=== PATIENT | female | born 1980 | race American Indian/Alaskan Native ===

== ENCOUNTER 2021-09-28 22:54 | Inpatient (IN) | payer MEDICAID ==
[2021-09-28] MEDS ORDERED: THIAMINE 100 MG, FOLIC ACID 1 MG, MULTIPLE VITAMIN INJ, ADULT 10 ML in SODIUM CHLORIDE ... IV ONE (23:08)
[2021-09-28] MEDS ORDERED: NALOXONE 0.4 MG/1 ML INJ IV ONE (23:08)
[2021-09-28] MEDS ORDERED: LORazepam 2 MG/ML VIAL IM PRN (23:09)
[2021-09-28] MEDS ORDERED: HALOPERIDOL LACTATE 5 MG/1 ML INJ IM PRN (23:09)
[2021-09-28] MEDS ORDERED: NALOXONE 2 MG/2 ML INJ IV PRN (23:10)
[2021-09-28] MEDS ORDERED: NALOXONE 2 MG/2 ML INJ IV ONE ×2 (23:10→23:11)
[2021-09-28] MEDS ORDERED: NALOXONE 0.4 MG/1 ML INJ IM ONE (23:11)
--- NOTE | 2021-09-28 23:12 | Emergency Department Report ---
<TY DUPONT - Last Filed: 09/29/21 03:31> ED General Adult HPI - General Chief complaint: Overdose Stated complaint: DRUG OD Time Seen by Provider: 09/28/21 23:08 - Related Data Home Medications Medication Instructions Recorded Confirmed Last Taken Gabapentin 400 mg PO BID 09/29/21 09/29/21 09/27/21 Allergies Allergy/AdvReac Type Severity Reaction Status Date / Time iodine Allergy Anaphylaxis Verified 09/29/21 09:36 ED Past Medical Hx - Medications Home Medications: Home Medications Medication Instructions Recorded Confirmed Last Taken Type Gabapentin 400 mg PO BID 09/29/21 09/29/21 09/27/21 History ED Medical Decision Making - Lab Data Result diagrams: 09/28/21 23:19 09/28/21 23:19 - Medical Decision Making The patient CT of the head, CT of the neck, and chest x-ray were interpreted by the radiologist and were also reviewed by me. The patient saturations were noted to be low on presentation to the emergency department she was immediately bagged and given a total of 8 mg of Narcan with some response. The decision to intubate the patient was aborted. She has since shown some improvement and is on oxygen at 3 L nasal cannula with a heart rate of 65 respiratory 28 saturation of 99 and blood pressure 133/93. The patient's drug screen was positive for benzodiazepine but did not show any alcohol or opiates. I spoke to the hospitalist who agreed to go ahead and admit the patient to a stepdown unit. It is of note that this patient lost a brother to overdose of drugs as well. ED Disposition Clinical Impression: Closed head injury Overdose Qualifiers: Encounter type: initial encounter Injury intent: undetermined intent Qualified Code(s): T50.904A - Poisoning by unspecified drugs, medicaments and biological substances, undetermined, initial encounter Disposition: ADMITTED INPATIENT Condition: Serious <MONASHANNON - Last Filed: 10/01/21 14:19> ED General Adult HPI - General Source: family, RN notes reviewed Mode of arrival: Stretcher Limitations: Altered Mental Status, Physical Limitation - History of Present Illness Initial comments: The patient is a 41-year-old female. She presents acutely unresponsive. History obtained from nursing team who in turn received report from family. Apparently, patient was found in the bathroom unresponsive and barely breathing. Reportedly, family drove patient here approximately 1/2-hour. Upon arrival to the emergency room, the patient is in a car, not breathing, and not moving. She is immediately brought back to the resuscitation bay. She receives aao-jfxvc-axun ventilation. She is immediately placed on a workforce management manager. She received Narcan 2 mg IV x3, and 2 mg IM x1, for a total cumulative dose of 8 mg. She has marked improvement in her respiratory distress. She is awake and confused. She does not know where she is. She is moving 4 extremities. She denies homicidality and suicidality. -: This evening ED Review of Systems ROS: Stated complaint: DRUG OD Other details as noted in HPI Comment: Unobtainable due to pts medical conditions ED Physical Exam - General Limitations: Altered Mental Status General appearance: appears intoxicated, lethargic - Head Head exam: Present: atraumatic, normocephalic - Eye Eye exam: Present: normal appearance, EOMI. Absent: nystagmus - ENT ENT exam: Present: normal orophraynx, mucous membranes moist, normal external ear exam, other (Blood is noted in the anterior aspect of the). Absent: normal exam - Neck Neck exam: Present: normal inspection, full ROM. Absent: tenderness, meningismus - Respiratory Respiratory exam: Present: respiratory distress, rhonchi. Absent: wheezes, rales - Cardiovascular Cardiovascular Exam: Present: regular rate, normal rhythm, normal heart sounds. Absent: bradycardia, tachycardia, irregular rhythm, systolic murmur, diastolic murmur, rubs, gallop - GI/Abdominal GI/Abdominal exam: Present: soft. Absent: distended, tenderness, guarding, rebound, rigid, pulsatile mass - Extremities Exam Extremities exam: Present: normal inspection, full ROM, other (2+ pulses noted in the bilateral upper and lower extremities. There is no palpable cord. negative Homans sign. Muscular compartments are soft. The pelvis is stable.). Absent: pedal edema, calf tenderness - Back Exam Back exam: Present: normal inspection. Absent: tenderness, CVA tenderness (R), CVA tenderness (L), muscle spasm, paraspinal tenderness, vertebral tenderness - Neurological Exam Neurological exam: Present: altered, other (After administration of Narcan, the patient is awake, confused, and moving 4 extremities) - Psychiatric Psychiatric exam: Present: agitated, anxious - Skin Skin exam: Present: warm, dry, intact, normal color. Absent: rash ED Course Vital Signs 09/28/21 09/28/21 09/28/21 22:54 23:35 23:45 Temperature Pulse Rate 83 88 Respiratory 25 H 22 Rate Blood Pressure 123/62 Blood Pressure 115/80 [Right] O2 Sat by Pulse 100 100 100 Oximetry 09/28/21 09/28/21 09/29/21 23:51 23:53 00:01 Temperature Pulse Rate 97 H 94 H Respiratory 16 29 H Rate Blood Pressure 123/62 123/69 Blood Pressure [Right] O2 Sat by Pulse 100 98 100 Oximetry 09/29/21 09/29/21 09/29/21 00:35 00:45 01:01 Temperature Pulse Rate 84 81 89 Respiratory 15 27 H 16 Rate Blood Pressure 123/69 123/69 113/71 Blood Pressure [Right] O2 Sat by Pulse 100 99 100 Oximetry 09/29/21 09/29/21 09/29/21 01:15 01:31 01:45 Temperature Pulse Rate 82 91 H 67 Respiratory 32 H 14 31 H Rate Blood Pressure 113/71 117/72 117/72 Blood Pressure [Right] O2 Sat by Pulse 100 100 98 Oximetry 09/29/21 09/29/21 09/29/21 02:01 02:15 02:31 Temperature Pulse Rate 67 67 65 Respiratory 33 H 29 H 25 H Rate Blood Pressure 107/70 107/70 133/93 Blood Pressure [Right] O2 Sat by Pulse 99 99 99 Oximetry 09/29/21 09/29/21 09/29/21 02:45 03:01 03:15 Temperature Pulse Rate 65 68 70 Respiratory 30 H 29 H 25 H Rate Blood Pressure 133/93 115/64 115/64 Blood Pressure [Right] O2 Sat by Pulse 98 98 98 Oximetry 09/29/21 09/29/21 09/29/21 03:21 03:31 03:45 Temperature 97 F L Pulse Rate 67 65 Respiratory 24 27 H Rate Blood Pressure 112/75 112/75 Blood Pressure [Right] O2 Sat by Pulse 99 98 Oximetry 09/29/21 09/29/21 09/29/21 04:01 04:36 04:45 Temperature Pulse Rate 73 69 74 Respiratory 19 19 16 Rate Blood Pressure 136/94 Blood Pressure [Right] O2 Sat by Pulse 99 100 100 Oximetry - Reevaluation(s) Reevaluation #1: 09/28/21 23:54 Differential diagnosis, including but not limited to: Toxic metabolic encephalopathy, opioid overdose, closed head injury, cervical spine injury Assessment and plan: 41-year-old female with probable toxic metabolic encephal opathy, likely secondary to opioid, reversed with cumulative dose of 8 mg of Narcan. Patient is awake, breathing spontaneously, protecting her airway, and moving [address] scan of the brain and cervical spine ordered. EKG pending. Care will be transferred to the oncoming ER physician to follow-up on these diagnostic studies. Recommend admission to the medical service for respiratory care and observation. Patient placed on hold, and have requested psychiatric consultation and evaluation Patient is not cleared for psychiatric placement and disposition at this time, b ut we appreciates the psychiatric team's recommendations regarding this patient's care for overdose of uncertain intent ED Medical Decision Making - Lab Data Result diagrams: 09/28/21 23:19 09/28/21 23:19 Vital Signs 09/28/21 09/28/21 09/28/21 22:54 23:35 23:45 Pulse Rate 83 88 Respiratory 25 H 22 Rate Blood Pressure 123/62 Blood Pressure 115/80 [Right] O2 Sat by Pulse 100 100 100 Oximetry Lab Results 09/28/21 09/28/21 09/28/21 Range/Units 23:19 23:19 23:19 WBC 4.6 (4.5-11.0) K/mm3 RBC 3.89 (3.65-5.03) M/mm3 Hgb 11.8 (10.1-14.3) gm/dl Hct 36.0 (30.3-42.9) % MCV 93 (79-97) fl MCH 30 (28-32) pg MCHC 33 (30-34) % RDW 13.7 (13.2-15.2) % Plt Count 67 L (140-440) K/mm3 Lymph % (Auto) 45.3 H (13.4-35.0) % [place] % (Auto) 3.8 (0.0-7.3) % Eos % (Auto) 2.3 (0.0-4.3) % Baso % (Auto) 0.8 (0.0-1.8) % Lymph # (Auto) 2.1 (1.2-5.4) K/mm3 [place] # (Auto) 0.2 (0.0-0.8) K/mm3 Eos # (Auto) 0.1 (0.0-0.4) K/mm3 Baso # (Auto) 0.0 (0.0-0.1) K/mm3 Seg Neutrophils % 47.8 (40.0-70.0) % Seg Neutrophils # 2.2 (1.8-7.7) K/mm3 PT 12.9 (12.2-14.9) Sec. INR 0.88 (0.87-1.13) APTT 21.3 L (24.2-36.6) Sec. Sodium 137 (137-145) mmol/L Potassium 4.0 (3.6-5.0) mmol/L Chloride 100.6 (98-107) mmol/L Carbon Dioxide 24 (22-30) mmol/L Anion Gap 16 mmol/L BUN 8 (7-17) mg/dL Creatinine 0.9 (0.6-1.2) mg/dL Estimated GFR > 60 ml/min BUN/Creatinine Ratio 9 % Glucose 260 H (65-100) mg/dL Calcium 9.1 (8.4-10.2) mg/dL Magnesium 2.00 (1.7-2.3) mg/dL Total Bilirubin 0.80 (0.1-1.2) mg/dL AST 97 H (5-40) units/L ALT 60 H (7-56) units/L Alkaline Phosphatase 112 (35-129) units/L Total Creatine Kinase (30-135) units/L Total Protein 7.4 (6.3-8.2) g/dL Albumin 4.3 (3.9-5) g/dL Albumin/Globulin Ratio 1.4 % Salicylates (2.8-20.0) mg/dL Acetaminophen (10.0-30.0) ug/mL Plasma/Serum Alcohol (0-0.07) % 09/28/21 09/28/21 09/28/21 Range/Units 23:19 23:19 23:19 WBC (4.5-11.0) K/mm3 RBC (3.65-5.03) M/mm3 Hgb (10.1-14.3) gm/dl Hct (30.3-42.9) % MCV (79-97) fl MCH (28-32) pg MCHC (30-34) % RDW (13.2-15.2) % Plt Count (140-440) K/mm3 Lymph % (Auto) (13.4-35.0) % [place] % (Auto) (0.0-7.3) % Eos % (Auto) (0.0-4.3) % Baso % (Auto) (0.0-1.8) % Lymph # (Auto) (1.2-5.4) K/mm3 [place] # (Auto) (0.0-0.8) K/mm3 Eos # (Auto) (0.0-0.4) K/mm3 Baso # (Auto) (0.0-0.1) K/mm3 Seg Neutrophils % (40.0-70.0) % Seg Neutrophils # (1.8-7.7) K/mm3 PT (12.2-14.9) Sec. INR (0.87-1.13) APTT (24.2-36.6) Sec. Sodium (137-145) mmol/L Potassium (3.6-5.0) mmol/L Chloride (98-107) mmol/L Carbon Dioxide (22-30) mmol/L Anion Gap mmol/L BUN (7-17) mg/dL Creatinine (0.6-1.2) mg/dL Estimated GFR ml/min BUN/Creatinine Ratio % Glucose (65-100) mg/dL Calcium (8.4-10.2) mg/dL Magnesium (1.7-2.3) mg/dL Total Bilirubin (0.1-1.2) mg/dL AST (5-40) units/L ALT (7-56) units/L Alkaline Phosphatase (35-129) units/L Total Creatine Kinase 168 H (30-135) units/L Total Protein (6.3-8.2) g/dL Albumin (3.9-5) g/dL Albumin/Globulin Ratio % Salicylates < 0.3 L (2.8-20.0) mg/dL Acetaminophen (10.0-30.0) ug/mL Plasma/Serum Alcohol < 0.01 (0-0.07) % 09/28/21 Range/Units 23:19 WBC (4.5-11.0) K/mm3 RBC (3.65-5.03) M/mm3 Hgb (10.1-14.3) gm/dl Hct (30.3-42.9) % MCV (79-97) fl MCH (28-32) pg MCHC (30-34) % RDW (13.2-15.2) % Plt Count (140-440) K/mm3 Lymph % (Auto) (13.4-35.0) % [place] % (Auto) (0.0-7.3) % Eos % (Auto) (0.0-4.3) % Baso % (Auto) (0.0-1.8) % Lymph # (Auto) (1.2-5.4) K/mm3 [place] # (Auto) (0.0-0.8) K/mm3 Eos # (Auto) (0.0-0.4) K/mm3 Baso # (Auto) (0.0-0.1) K/mm3 Seg Neutrophils % (40.0-70.0) % Seg Neutrophils # (1.8-7.7) K/mm3 PT (12.2-14.9) Sec. INR (0.87-1.13) APTT (24.2-36.6) Sec. Sodium (137-145) mmol/L Potassium (3.6-5.0) mmol/L Chloride (98-107) mmol/L Carbon Dioxide (22-30) mmol/L Anion Gap mmol/L BUN (7-17) mg/dL Creatinine (0.6-1.2) mg/dL Estimated GFR ml/min BUN/Creatinine Ratio % Glucose (65-100) mg/dL Calcium (8.4-10.2) mg/dL Magnesium (1.7-2.3) mg/dL Total Bilirubin (0.1-1.2) mg/dL AST (5-40) units/L ALT (7-56) units/L Alkaline Phosphatase (35-129) units/L Total Creatine Kinase (30-135) units/L Total Protein (6.3-8.2) g/dL Albumin (3.9-5) g/dL Albumin/Globulin Ratio % Salicylates (2.8-20.0) mg/dL Acetaminophen 5.0 L (10.0-30.0) ug/mL Plasma/Serum Alcohol (0-0.07) % - Radiology Data Radiology results: image reviewed interpreted by me: 1 view x-ray of the chest, interpreted by myself, shows clear lungs, no infiltrate and no pneumothorax Critical Care Time: Yes Critical care time in (mins) excluding proc time.: 45 Critical care attestation.: If time is entered above; I have spent that time in minutes in the direct care of this critically ill patient, excluding procedure time. ED Disposition Is pt being admited?: Yes Does the pt Need Aspirin: No
[2021-09-28 23:43] LABS: Basophils % (Auto) 0.8 % (0.0-1.8); Eosinophils # (Auto) 0.1 K/mm3 (0.0-0.4); Eosinophils % (Auto) 2.3 % (0.0-4.3); Hemoglobin 11.8 gm/dl (10.1-14.3); Lymphocytes # (Auto) 2.1 K/mm3 (1.2-5.4); Lymphocytes % (Auto) 45.3 % (13.4-35.0); Mean Corpuscular HGB Conc 33 % (30-34); Mean Corpuscular Volume 93 fl (79-97); Monocytes # (Auto) 0.2 K/mm3 (0.0-0.8); Monocytes % (Auto) 3.8 % (0.0-7.3); Red Blood Count 3.89 M/mm3 (3.65-5.03); Red Cell Distribution Width 13.7 % (13.2-15.2)
[2021-09-28 23:48] LABS: Platelet Count 67 K/mm3 (140-440)
[2021-09-28 23:50] LABS: Alanine Aminotransferase 60 units/L (7-56); Albumin 4.3 g/dL (3.9-5); BUN/Creatinine Ratio 9; Blood Urea Nitrogen 8 mg/dL (7-17); Calcium 9.1 mg/dL (8.4-10.2); Hemolysis Index 7; INR 0.88 (0.87-1.13)
[2021-09-28 23:51] LABS: Partial Thromboplastin Time 21.3 Sec. (24.2-36.6)
--- NOTE | 2021-09-28 23:57 | XRay Report ---
CHEST 1 VIEW INDICATION / CLINICAL INFORMATION: Overdose, hypoxia, respiratory distress. COMPARISON: None available. FINDINGS: SUPPORT DEVICES: None. HEART / MEDIASTINUM: No significant abnormality. LUNGS / PLEURA: The lungs are clear. No pneumothorax. BONES: No significant osseous abnormality. ADDITIONAL FINDINGS: No significant additional findings. IMPRESSION: 1. No active cardiopulmonary disease. Signer Name: Brock Valdez II, MD Signed: 09/28/2021 11:53 PM Workstation Name: [id number]
--- NOTE | 2021-09-29 00:52 | Cat Scan Report ---
CT HEAD WITHOUT CONTRAST INDICATION / CLINICAL INFORMATION: Alcohol intoxication with closed head injury. TECHNIQUE: CT head was performed without administration of intravenous contrast. All CT scans at this location are performed using CT dose reduction for ALARA by means of automated exposure control. COMPARISON: None available. FINDINGS: CEREBRAL PARENCHYMA: No significant abnormality. No acute territorial infarct. HEMORRHAGE: None. EXTRA-AXIAL SPACES: Normal in size and morphology for the patient's age. VENTRICULAR SYSTEM: Normal in size and morphology for the patient's age. MIDLINE SHIFT / HERNIATION: None. CEREBELLUM / BRAINSTEM: No significant abnormality. ORBITS: Normal as visualized. SOFT TISSUES: No significant abnormality. SKULL: No significant abnormality. PARANASAL SINUSES / MASTOID AIR CELLS: Normal as visualized. ADDITIONAL FINDINGS: None. IMPRESSION: 1. No acute intracranial abnormality. Signer Name: Brock Valdez II, MD Signed: 09/29/2021 12:48 AM Workstation Name: [id number]
--- NOTE | 2021-09-29 00:54 | Cat Scan Report ---
CT CERVICAL SPINE WITHOUT CONTRAST INDICATION / CLINICAL INFORMATION: Alcohol Intoxication. TECHNIQUE: Axial CT images were obtained through the cervical spine. Sagittal and coronal reformatted images were produced. All CT scans at this location are performed using CT dose reduction for ALARA by means of automated exposure control. COMPARISON: None available. FINDINGS: MANDIBLE: No significant abnormality of the visualized mandible or TMJs. SKULL BASE: No significant abnormality of the skull base. CRANIOCERVICAL JUNCTION: No significant abnormality of the craniocervical junction. ALIGNMENT: No significant abnormality of alignment. VERTEBRAL BODIES: Vertebral body heights fairly uniform throughout. DISK SPACES: Disk spaces are fairly uniform throughout. FACET JOINTS: No significant abnormality of facet articulations. STENOSIS BY LEVEL: None. CENTRAL CANAL: No significant central stenosis. SOFT TISSUES: No significant abnormality of soft tissues or musculature. THYROID: No significant abnormality. UPPER CHEST: No significant abnormality of the visualized chest. ADDITIONAL FINDINGS: None. IMPRESSION: 1. No acute cervical spine injury. No significant degenerative changes. Signer Name: Brock Valdez II, MD Signed: 09/29/2021 12:49 AM Workstation Name: [id number]
[2021-09-29 01:27] LABS: Bacteria,Urine 1+ /HPF (Negative); Bilirubin,Urine NEG (Negative); Blood,Urine LG (Negative); Color,Urine Straw (Yellow); Protein,Urine <15 mg/dL mg/dL (Negative); Urobilinogen,Urine < 2.0 mg/dL (<2.0)
[2021-09-29 01:31] LABS: Amphetamine Screen,Urine PRESUMPTIVE NEGATIVE; Benzodiazepines Screen,Urine PRESUMPTIVE POSITIVE; Cannabinoid Screen,Urine PRESUMPTIVE NEGATIVE; Cocaine Screen,Urine PRESUMPTIVE NEGATIVE; Methadone Screen,Urine PRESUMPTIVE NEGATIVE; Opiate Screen,Urine PRESUMPTIVE NEGATIVE
[2021-09-29] MEDS ORDERED: ACETAMINOPHEN 325 MG TAB PO PRN (02:51)
[2021-09-29] MEDS ORDERED: MORPHINE 4 MG/1 ML INJ IV PRN (02:51)
[2021-09-29] MEDS ORDERED: MAGNESIUM HYDROXIDE (MOM) ORAL LIQD UDC PO PRN (02:51)
[2021-09-29] MEDS ORDERED: MORPHINE 2 MG/1 ML INJ IV PRN (02:51)
[2021-09-29] MEDS ORDERED: SODIUM CHLORIDE 0.9% 1000 ML 1,000 ML IV SCH (03:00)
--- NOTE | 2021-09-29 03:02 | History and Physical Report ---
History of Present Illness Date of examination: 09/29/21 Date of admission: 09/29/2021 Chief complaint: Unresponsiveness History of present illness: 41-year-old -[place] female brought into the emergency room today for evaluation of unresponsiveness. Patient was said to have been driven to the emergency room by family member after patient had been found in the bathroom unresponsive. While in the car patient was not breathing. Upon arrival received mgj-cqbfr-[id number] ventilation placed on a business executive immediately. Patient received multiple doses of IV Narcan with some improvement in respiratory distress. She later became more awake but mildly confused. She denies any chest pain or shortness of breath, no nausea vomiting, no diarrhea and no abdominal pain. Work-up in the emergency room today, CT of the head, CT of the cervical spine and chest x-ray were unremarkable. Urine toxicology screen was positive for benzodiazepine. Lab was significant for blood glucose of 260. Elevated liver enzymes. Urinalysis essentially negative. Past History Past Medical History: No medical history Past Surgical History: No surgical history Social history: no significant social history Family history: no significant family history Medications and Allergies Allergies Allergy/AdvReac Type Severity Reaction Status Date / Time No Known Allergies Allergy Verified 09/29/21 01:30 Active Meds: Active Medications Acetaminophen (Acetaminophen 325 Mg Tab) 650 mg PO Q6H PRN PRN Reason: Pain MILD(1-3)/Fever >100.5/VAIL Haloperidol Lactate (Haloperidol Lactate 5 Mg/1 Ml Inj) 5 mg IM Q6HR PRN PRN Reason: Agitation Thiamine HCl 100 mg/ Folic Acid 1 mg/ Multivitamins/Minerals 10 ml/ Sodium Chloride 1,011.2 mls @ 250 mls/hr IV ONCE ONE Stop: 09/29/21 03:10 Last Admin: 09/29/21 01:49 Dose: 250 mls/hr Sodium Chloride (Nacl 0.9% 1000 Ml) 1,000 mls @ 125 mls/hr IV DIRECT SHERMAN Lorazepam (Lorazepam 2 Mg/Ml Vial) 2 mg IM Q4HR PRN PRN Reason: Agitation Magnesium Hydroxide (Magnesium Hydroxide (Mom) Oral Liqd Udc) 30 ml PO Q4H PRN PRN Reason: Constipation Morphine Sulfate (Morphine 2 Mg/1 Ml Inj) 2 mg IV Q4H PRN PRN Reason: Pain, Moderate (4-6) Morphine Sulfate (Morphine 4 Mg/1 Ml Inj) 4 mg IV Q4H PRN PRN Reason: Pain , Severe (7-10) Naloxone HCl (Naloxone 2 Mg/2 Ml Inj) 0.1 mg IV Q2MIN PRN PRN Reason: Res Rate </= 8 or 02 SAT < 92% Sodium Chloride (Sodium Chloride 0.9% 10 Ml Flush Syringe) 10 ml IV BID SHERMAN Sodium Chloride (Sodium Chloride 0.9% 10 Ml Flush Syringe) 10 ml IV PRN PRN PRN Reason: LINE FLUSH Review of Systems Constitutional: no fever, no chills Ears, nose, mouth and throat: no nasal congestion, no sore throat Cardiovascular: no chest pain, no orthopnea, no palpitations Respiratory: no cough, no shortness of breath Gastrointestinal: no abdominal pain, no nausea, no vomiting Genitourinary Female: no dysuria, no hematuria Musculoskeletal: no neck pain, no low back pain Integumentary: no rash, no pruritis Neurological: no headaches, no confusion Psychiatric: no memory loss, no depression Endocrine: polydipsia, polyuria, nocturia Exam - Constitutional Vitals: Temp Pulse Resp BP Pulse Ox 65 25 H 133/93 99 09/29/21 02:31 09/29/21 02:31 09/29/21 02:31 09/29/21 02:31 General appearance: Present: no acute distress, well-nourished - EENT Eyes: Present: PERRL, EOM intact. Absent: scleral icterus ENT: hearing intact, clear oral mucosa, dentition normal - Neck Neck: Present: supple, normal ROM - Respiratory Respiratory effort: normal Respiratory: bilateral: CTA - Cardiovascular Rhythm: regular Heart Sounds: Present: S1 & S2. Absent: gallop, systolic murmur, diastolic murm ur, rub, click - Extremities Extremities: no ischemia, pulses intact, pulses symmetrical, No edema, normal temperature, normal color, Full ROM Peripheral Pulses: within normal limits - Abdominal General gastrointestinal: Present: soft, non-tender, non-distended, normal bowel sounds. Absent: mass - Integumentary Integumentary: Present: clear, warm, dry, normal turgor. Absent: rash - Musculoskeletal Musculoskeletal: strength equal bilaterally - Psychiatric Psychiatric: appropriate mood/affect, intact judgment & insight, memory intact, cooperative - Neurologic Neurologic: CNII-XII intact, no focal deficits, moves all extremities Results - Labs CBC & Chem 7: 09/28/21 23:19 09/28/21 23:19 Labs: Abnormal lab results 09/28/21 09/28/21 09/28/21 Range/Units 23:19 23:19 23:19 Plt Count 67 L (140-440) K/mm3 Lymph % (Auto) 45.3 H (13.4-35.0) % APTT 21.3 L (24.2-36.6) Sec. Glucose 260 H (65-100) mg/dL AST 97 H (5-40) units/L ALT 60 H (7-56) units/L Total Creatine Kinase (30-135) units/L Salicylates (2.8-20.0) mg/dL Acetaminophen (10.0-30.0) ug/mL 09/28/21 09/28/21 09/28/21 Range/Units 23:19 23:19 23:19 Plt Count (140-440) K/mm3 Lymph % (Auto) (13.4-35.0) % APTT (24.2-36.6) Sec. Glucose (65-100) mg/dL AST (5-40) units/L ALT (7-56) units/L Total Creatine Kinase 168 H (30-135) units/L Salicylates < 0.3 L (2.8-20.0) mg/dL Acetaminophen 5.0 L (10.0-30.0) ug/mL Assessment and Plan - Patient Problems (1) Overdose Current Visit: Yes Status: Acute Qualifiers: Encounter type: initial encounter Injury intent: undetermined intent Qualified Code(s): T50.904A - Poisoning by unspecified drugs, medicaments and biological substances, undetermined, initial encounter Plan to address problem: Possibly benzodiazepine. No homicidal or suicidal ideations We will monitor closely on telemetry (2) DVT prophylaxis Current Visit: Yes Status: Acute Plan to address problem: Patient placed on subcutaneous heparin. (3) Full code status Current Visit: Yes Status: Acute Plan to address problem: Patient is full code.
[2021-09-29] MEDS ORDERED: HEPARIN 5,000 UNIT/1 ML VIAL SUB-Q SCH (06:00)
--- NOTE | 2021-09-29 11:04 | Consultation ---
History of Present Illness - Reason for Consult Consult date: 09/29/21 Reason for consult: unintentional OD - History of Present Psychiatric Illness HPI: The patient is a 41-year-old female. She presents acutely unresponsive. History obtained from nursing team who in turn received report from family. Apparently, patient was found in the bathroom unresponsive and barely breathing. Reportedly, family drove patient here approximately 1/2-hour. Upon arrival to the emergency room, the patient is in a car, not breathing, and not moving. She is immediately brought back to the resuscitation bay. She receives [id number] ventilation. She is immediately placed on a intravenous therapy nurse. She received Narcan 2 mg IV x3, and 2 mg IM x1, for a total cumulative dose of 8 mg. She has marked improvement in her respiratory distress. She is awake and confused. She does not know where she is. She is moving 4 extremities. She denies homicidality and suicidality. The patient was seen today. She is a 41y/o female admitted after being found unresponsive. The patient is calm, cooperative and polite. She says she lost her son 2 years ago. She is grieving. The patient says at the time she ingested the "pill" she "thought it was a alissa." She says she was upset and angry about her son. She says she used to take xanax and thought that's what she was taking when it was given to her by someone she knew. She says she believes that the person who gave it to her knew what it was and did it purposely She denies any intentions on harming herself. The patient currently denies SI/HI or ever having an attempt. She denies ever seeing a psychiatrist on being on any meds outside of xanax, but states she currently sees a therapist "for her problems." I discus sed the benefit of starting an antidepressant, but the patient is not open at this time to medication management. She denies hallucinations of any kind. She denies illicit drug use, alcohol or nicotine use. PAST PSYCHIATRIC HISTORY Diagnoses: Denies Suicide attempts or Self-harm behavior: Denies Prior psychiatric hospitalizations: Denies Substance Abuse history: Denies Previous psychiatric medications tried: xanax Outpatient treatment: sees a therapist PAST MEDICAL HISTORY: None reported Family Psychiatric History: None reported or documented SOCIAL HISTORY Living arrangement: states she lives alone Marital status: Employed Bachelor's Degree REVIEW OF SYSTEMS Constitutional: Negative for weight loss ENT: Negative for stridor Respiratory: Negative for cough or hemoptysis All other systems reviewed and are negative MENTAL STATUS EXAMINATION General Appearance and Behavior: Age appropriate, good hygiene, wearing appropriate clothes, good eye contact, calm, cooperative Cooperation: Participating/engaged, but Guarded Psychomotor Behavior: Psychomotor normal Mood: okay Affect and affective range: congruent with stated mood Thought Process: goal directed Thought Content: None Speech: normal tone and pace Suicidal Ideation: Denies Homicidal Ideation: Denies Hallucinations: Denies Delusions: None elicited Impulse Control: good Insight and Judgment: Limited insight and judgment Memory: Good Attention: attentive Orientation: Alert, oriented Assessment and Plan Unintentional Overdose Treatment Plan No scripts given Medical: Per primary Sitter: Defer to primary Disposition: Do not recommend acute psychiatric inpatient treatment Will sign off. Thanks Case staffed with Dr. Encinas Medications and Allergies Allergies Allergy/AdvReac Type Severity Reaction Status Date / Time iodine Allergy Anaphylaxis Verified 09/29/21 09:36 Home Medications Medication Instructions Recorded Confirmed Last Taken Type Gabapentin 400 mg PO BID 09/29/21 09/29/21 09/27/21 History Xanax TAB 09/29/21 09/28/21 History Active Meds: Active Medications Acetaminophen (Acetaminophen 325 Mg Tab) 650 mg PO Q6H PRN PRN Reason: Pain MILD(1-3)/Fever >100.5/VAIL Haloperidol Lactate (Haloperidol Lactate 5 Mg/1 Ml Inj) 5 mg IM Q6HR PRN PRN Reason: Agitation Sodium Chloride (Nacl 0.9% 1000 Ml) 1,000 mls @ 125 mls/hr IV DIRECT SHERMAN Last Admin: 09/29/21 07:50 Dose: 125 mls/hr Lorazepam (Lorazepam 2 Mg/Ml Vial) 2 mg IM Q4HR PRN PRN Reason: Agitation Magnesium Hydroxide (Magnesium Hydroxide (Mom) Oral Liqd Udc) 30 ml PO Q4H PRN PRN Reason: Constipation Morphine Sulfate (Morphine 2 Mg/1 Ml Inj) 2 mg IV Q4H PRN PRN Reason: Pain, Moderate (4-6) Naloxone HCl (Naloxone 2 Mg/2 Ml Inj) 0.1 mg IV Q2MIN PRN PRN Reason: Res Rate </= 8 or 02 SAT < 92% Sodium Chloride (Sodium Chloride 0.9% 10 Ml Flush Syringe) 10 ml IV BID SHERMAN Last Admin: 09/29/21 09:42 Dose: 10 ml Sodium Chloride (Sodium Chloride 0.9% 10 Ml Flush Syringe) 10 ml IV PRN PRN PRN Reason: LINE FLUSH Mental Status Exam - Vital signs Last Vital Signs Temp 99.4 F 09/29/21 09:50 Pulse 62 09/29/21 10:41 Resp 13 09/29/21 10:41 BP 108/65 09/29/21 10:41 Pulse Ox 100 09/29/21 10:41 Results Result Diagrams: 09/28/21 23:19 09/28/21 23:19 Abnormal lab results 09/28/21 09/28/21 09/28/21 Range/Units 23:19 23:19 23:19 Plt Count 67 L (140-440) K/mm3 Lymph % (Auto) 45.3 H (13.4-35.0) % APTT 21.3 L (24.2-36.6) Sec. Glucose 260 H (65-100) mg/dL AST 97 H (5-40) units/L ALT 60 H (7-56) units/L Total Creatine Kinase (30-135) units/L Salicylates (2.8-20.0) mg/dL Acetaminophen (10.0-30.0) ug/mL 09/28/21 09/28/21 09/28/21 Range/Units 23:19 23:19 23:19 Plt Count (140-440) K/mm3 Lymph % (Auto) (13.4-35.0) % APTT (24.2-36.6) Sec. Glucose (65-100) mg/dL AST (5-40) units/L ALT (7-56) units/L Total Creatine Kinase 168 H (30-135) units/L Salicylates < 0.3 L (2.8-20.0) mg/dL Acetaminophen 5.0 L (10.0-30.0) ug/mL All other labs normal.
--- NOTE | 2021-09-29 11:15 | Progress Note ---
Assessment and Plan Assessment and plan: 41-year-old -Irish female brought into the emergency room today for evaluation of unresponsiveness. Patient was said to have been driven to the emergency room by family member after patient had been found in the bathroom unresponsive. While in the car patient was not breathing. Upon arrival received [id number] ventilation placed on a cardiac rehabilitation specialist immediately. Patient received multiple doses of IV Narcan with some improvement in respiratory distress. She later became more awake but mildly confused. She denies any chest pain or shortness of breath, no nausea vomiting, no diarrhe a and no abdominal pain. Work-up in the emergency room today, CT of the head, CT of the cervical spine and chest x-ray were unremarkable. Urine toxicology screen was positive for benzodiazepine. Lab was significant for blood glucose of 260. Elevated liver enzymes. Urinalysis essentially negative. Second visit for today. Patient is grieving the loss of her son from accidental overdose. Overdose possible benzos possible opioids denies homicidal ideation no suicidal ideation-UDS is negative Major depressive disorder currently follows with a therapist outpatient Thrombocytopenia Mild elevated transaminases Elevated glucose no diagnosis of diabetes Plan Patient clinically improved but platelets is 67 I do not have a baseline for her she already received his heparin this morning. We will send in HIT although I think this is less likely. Continue to monitor glucose level if persistently elevated will need to be evaluated for diabetes mellitus Psych has been consulted to assist with management of major depression disorder. Counseling provided to the patient about substance use for 15 minutes and also to continue with her therapist If platelet remains stable can safely be discharged in a.m. DVT and GI prophylax History Interval history: Patient seen and examined, clinically stable. She states that she had taken some substance from her friend. I believe that her friend lied about the c ontents of the substantiated. She denies any suicidal homicidal ideation Hospitalist Physical - Physical exam Narrative exam: VITAL SIGNS: Reviewed. GENERAL: The patient appears normally developed, Vital signs as documented. HEAD: No signs of head trauma. EYES: Pupils are equal. Extraocular motions intact. EARS: Hearing grossly intact. MOUTH: Oropharynx is normal. NECK: No adenopathy, no JVD. CHEST: Chest with clear breath sounds bilaterally. No wheezes, rales, or rhonchi. CARDIAC: Regular rate and rhythm. S1 and S2, without murmurs, gallops, or rubs. VASCULAR: No Edema. Peripheral pulses normal and equal in all extremities. ABDOMEN: Soft, non tender and non distended. No rebound or guarding, and no masses palpated. Bowel Sounds normal. MUSCULOSKELETAL: Good range of motion of all major joints. Extremities without clubbing, cyanosis or edema. NEUROLOGIC EXAM: Alert and oriented x 3 No focal sensory or strength deficits. Speech normal. Follows commands. PSYCHIATRIC: Mood normal. SKIN: detail exam as documented in skin assessment - Constitutional Vitals: Temp Pulse Resp BP Pulse Ox 99.4 F 62 13 108/65 100 09/29/21 09:50 09/29/21 10:41 09/29/21 10:41 09/29/21 10:41 09/29/21 10:41 General appearance: Present: no acute distress, well-nourished Results - Labs CBC & Chem 7: 09/28/21 23:19 09/28/21 23:19 Labs: Laboratory Last Values WBC 4.6 K/mm3 (4.5-11.0) 09/28/21 23:19 RBC 3.89 M/mm3 (3.65-5.03) 09/28/21 23:19 Hgb 11.8 gm/dl (10.1-14.3) 09/28/21 23:19 Hct 36.0 % (30.3-42.9) 09/28/21 23:19 MCV 93 fl (79-97) 09/28/21 23:19 MCH 30 pg (28-32) 09/28/21 23:19 MCHC 33 % (30-34) 09/28/21 23:19 RDW 13.7 % (13.2-15.2) 09/28/21 23:19 Plt Count 67 K/mm3 (140-440) L 09/28/21 23:19 Lymph % (Auto) 45.3 % (13.4-35.0) H 09/28/21 23:19 [place] % (Auto) 3.8 % (0.0-7.3) 09/28/21 23:19 Eos % (Auto) 2.3 % (0.0-4.3) 09/28/21 23:19 Baso % (Auto) 0.8 % (0.0-1.8) 09/28/21 23:19 Lymph # (Auto) 2.1 K/mm3 (1.2-5.4) 09/28/21 23:19 Slope # (Auto) 0.2 K/mm3 (0.0-0.8) 09/28/21 23:19 Eos # (Auto) 0.1 K/mm3 (0.0-0.4) 09/28/21 23:19 Baso # (Auto) 0.0 K/mm3 (0.0-0.1) 09/28/21 23:19 Seg Neutrophils % 47.8 % (40.0-70.0) 09/28/21 23:19 Seg Neutrophils # 2.2 K/mm3 (1.8-7.7) 09/28/21 23:19 PT 12.9 Sec. (12.2-14.9) 09/28/21 23:19 INR 0.88 (0.87-1.13) 09/28/21 23:19 APTT 21.3 Sec. (24.2-36.6) L 09/28/21 23:19 Sodium 137 mmol/L (137-145) 09/28/21 23:19 Potassium 4.0 mmol/L (3.6-5.0) 09/28/21 23:19 Chloride 100.6 mmol/L (98-107) 09/28/21 23:19 Carbon Dioxide 24 mmol/L (22-30) 09/28/21 23:19 Anion Gap 16 mmol/L 09/28/21 23:19 BUN 8 mg/dL (7-17) 09/28/21 23:19 Creatinine 0.9 mg/dL (0.6-1.2) 09/28/21 23:19 Estimated GFR > 60 ml/min 09/28/21 23:19 BUN/Creatinine Ratio 9 % 09/28/21 23:19 Glucose 260 mg/dL (65-100) H 09/28/21 23:19 Calcium 9.1 mg/dL (8.4-10.2) 09/28/21 23:19 Magnesium 2.00 mg/dL (1.7-2.3) 09/28/21 23:19 Total Bilirubin 0.80 mg/dL (0.1-1.2) 09/28/21 23:19 AST 97 units/L (5-40) H 09/28/21 23:19 ALT 60 units/L (7-56) H 09/28/21 23:19 Alkaline Phosphatase 112 units/L (35-129) 09/28/21 23:19 Total Creatine Kinase 168 units/L (30-135) H 09/28/21 23:19 Total Protein 7.4 g/dL (6.3-8.2) 09/28/21 23:19 Albumin 4.3 g/dL (3.9-5) 09/28/21 23:19 Albumin/Globulin Ratio 1.4 % 09/28/21 23:19 HCG, Quant < 2 mIU/mL (0-4) 09/28/21 23:19 Urine Color Straw (Yellow) 09/29/21 01:08 Urine Turbidity Clear (Clear) 09/29/21 01:08 Urine pH 7.0 (5.0-7.0) 09/29/21 01:08 Ur Specific [place] 1.008 (1.003-1.030) 09/29/21 01:08 Urine Protein <15 mg/dl mg/dL (Negative) 09/29/21 01:08 Urine Glucose (UA) 150 mg/dL (Negative) 09/29/21 01:08 Urine Ketones Neg mg/dL (Negative) 09/29/21 01:08 Urine Blood Lg (Negative) 09/29/21 01:08 Urine Nitrite Neg (Negative) 09/29/21 01:08 Urine Bilirubin Neg (Negative) 09/29/21 01:08 Urine Urobilinogen < 2.0 mg/dL (<2.0) 09/29/21 01:08 Ur Leukocyte Esterase Neg (Negative) 09/29/21 01:08 Urine WBC (Auto) 2.0 /HPF (0.0-6.0) 09/29/21 01:08 Urine RBC (Auto) 161.0 /HPF (0.0-6.0) 09/29/21 01:08 U Epithel Cells (Auto) 1.0 /HPF (0-13.0) 09/29/21 01:08 Urine Bacteria (Auto) 1+ /HPF (Negative) 09/29/21 01:08 Salicylates < 0.3 mg/dL (2.8-20.0) L 09/28/21 23:19 Urine Opiates Screen Presumptive negative 09/29/21 01:08 Urine Methadone Screen Presumptive negative 09/29/21 01:08 Acetaminophen 5.0 ug/mL (10.0-30.0) L 09/28/21 23:19 Ur Barbiturates Screen Presumptive negative 09/29/21 01:08 Ur Phencyclidine Scrn Presumptive negative 09/29/21 01:08 Ur Amphetamines Screen Presumptive negative 09/29/21 01:08 U Benzodiazepines Scrn Presumptive positive 09/29/21 01:08 Urine Cocaine Screen Presumptive negative 09/29/21 01:08 U Marijuana (THC) Screen Presumptive negative 09/29/21 01:08 Drugs of Abuse Note Disclamer 09/29/21 01:08 Plasma/Serum Alcohol < 0.01 % (0-0.07) 09/28/21 23:19 [place]/IV: Voiding Method Toilet Active Medications - Current Medications Current Medications: Generic Name Dose Route Start Last Admin Trade Name Freq PRN Reason Stop Dose Admin Acetaminophen 650 mg 09/29/21 02:51 Acetaminophen 325 Mg Tab PO Q6H PRN Pain MILD(1-3)/Fever >100.5/VAIL Haloperidol Lactate 5 mg 09/28/21 23:09 Haloperidol Lactate 5 Mg/1 Ml Inj IM Q6HR PRN Agitation Sodium Chloride 1,000 mls @ 125 mls/hr 09/29/21 03:00 09/29/21 07:50 Nacl 0.9% 1000 Ml IV 125 mls/hr DIRECT SHERMAN Administration Lorazepam 2 mg 09/28/21 23:09 Lorazepam 2 Mg/Ml Vial IM Q4HR PRN Agitation Magnesium Hydroxide 30 ml 09/29/21 02:51 Magnesium Hydroxide (Mom) Oral Liqd Udc PO Q4H PRN Constipation Morphine Sulfate 2 mg 09/29/21 02:51 Morphine 2 Mg/1 Ml Inj IV Q4H PRN Pain, Moderate (4-6) Naloxone HCl 0.1 mg 09/28/21 23:10 Naloxone 2 Mg/2 Ml Inj IV Q2MIN PRN Res Rate </= 8 or 02 SAT < 92% Sodium Chloride 10 ml 09/29/21 10:00 09/29/21 09:42 Sodium Chloride 0.9% 10 Ml Flush Syringe IV 10 ml BID SHERMAN Administration Sodium Chloride 10 ml 09/29/21 02:51 Sodium Chloride 0.9% 10 Ml Flush Syringe IV PRN PRN LINE FLUSH
[2021-09-29] MEDS ORDERED: ETOMIDATE 20 MG/10 ML INJ IV ONE (13:30)
[2021-09-29] MEDS ORDERED: ROCURONIUM 50 MG/5 ML INJ IV ONE (13:30)
--- NOTE | 2021-09-29 14:34 | Electrocardiograph Report ---
[facility] Test Date: 2021-09-29 Test Time: 08:39:31 Pat Name: HAL CORONA Department: Room: A354 Gender: F Sheriff Detective: DA : 1980 Requested By: SHANNON DUNN Order Number: [id number] Reading MD: Chito Myers Measurements Intervals [place] Rate: 56 P: 54 MN: 187 QRS: 35 QRSD: 86 T: 43 QT: 455 QTc: 440 Interpretive Statements Sinus bradycardia Otherwise normal ECG No previous ECG available for comparison Electronically Signed On 09-29-2021 14:34:03 EDT by Chito Myers
[2021-09-29 18:14] VITALS: BP 128/81
== END 2021-09-29 19:37 | disposition left against medical advice (07) | DRG 918 ==
LOC: ED 22:54 → IMCU 09-29 02:52 → 3A 09-29 12:06
PROVIDERS: ADMIT Internal Medicine Geriatric Medicine; ATTEND Internal Medicine
DX: T42.4X1A Poisoning by benzodiazepines, accidental (unintentional), initial encounter (principal); F32.9 Major depressive disorder, single episode, unspecified; D69.6 Thrombocytopenia, unspecified; Z20.822 Contact with and (suspected) exposure to COVID-19; Z53.29 Procedure and treatment not carried out because of patient's decision for other reasons; S09.90XA Unspecified injury of head, initial encounter; X58.XXXA Exposure to other specified factors, initial encounter; Y93.89 Activity, other specified; Y92.89 Other specified places as the place of occurrence of the external cause; Y99.8 Other external cause status; Z88.3 Allergy status to other anti-infective agents
CPT/HCPCS: 36415; 70450; 71045; 72125; 80053; 80307; 80320; 81001; 82550; 83036; 83735; 84702; 85025; 85610; 85730; 93005; G0378; J3490; Q0162; G0480; J1644; J2310; J3411; J7030; U0003